=== PATIENT | female | born 1990 | race African-American/Black ===

== ENCOUNTER → 2016-06-29 | Outpatient (CLI) | payer OTHER ==
[2016-06-29 13:29] LABS: BASO % 0.5 % (0.0-1.0); EOS % 1.1 % (0.0-3.0); LARGE UNSTAINED CELL # 0.1 K/mm3 (0.0-0.4); LYMPH # 1.5 K/mm3 (1.5-6.5); LYMPH % 38.7 % (24.0-44.0); MEAN CORPUSCULAR VOLUME 90.5 fl (80.0-96.0); MONO # 0.2 K/mm3 (0.0-0.8); MONO % 5.8 % (0.0-5.0); NEUTROPHILS # 1.9 K/mm3 (1.8-7.7); NEUTROPHILS % 51.9 % (36.0-66.0); PLATELET COUNT, AUTOMATED 211 k/mm3 (150-450); RED CELL DISTRIBUTION WIDTH 13.4 % (11.5-14.5); WHITE BLOOD COUNT 3.6 K/mm3 (4.0-10.0)
[2016-06-29 13:52] LABS: ALBUMIN 4.1 GM/DL (3.2-5.2); ALBUMIN/GLOBULIN RATIO 1.21 (1.00-1.93); ALKALINE PHOSPHATASE 77 U/L (45-117); ALT/SGPT 14 U/L (12-78); ANION GAP 7 MEQ/L (8-16); AST/SGOT 23 U/L (15-37); BILIRUBIN,TOTAL 0.9 MG/DL (0.2-1.0); BLOOD UREA NITROGEN 9 MG/DL (7-18); CALCIUM LEVEL 9.2 MG/DL (8.5-10.1); CARBON DIOXIDE LEVEL 27 MEQ/L (21-32); CHLORIDE LEVEL 106 MEQ/L (98-107); CHOLESTEROL LEVEL 191 MG/DL (<200); CREATININE FOR GFR 0.95 MG/DL (0.55-1.02); GLOMERULAR FILTRATION RATE > 60.0 (>60); GLUCOSE, FASTING 71 MG/DL (70-105); POTASSIUM SERUM 4.2 MEQ/L (3.5-5.1); SODIUM LEVEL 140 MEQ/L (136-145); TOTAL PROTEIN 7.5 GM/DL (6.4-8.2); TRIGLYCERIDES LEVEL 50 MG/DL (<150)
== END ==
LOC: M WUC 10:30
PROVIDERS: ATTEND Physician Assistant
DX: R53.83 Other fatigue (principal); Z13.220 Encounter for screening for lipoid disorders

== ENCOUNTER → 2017-06-05 | Outpatient (REF) | payer OTHER ==
[2017-06-05 12:51] LABS: BASO % 1.1 % (0.0-1.0); EOS # 0.1 10^3/uL (0.0-0.50); EOS % 1.8 % (0.0-3.0); HEMATOCRIT 40.5 % (36.0-47.0); HEMOGLOBIN 13.5 g/dl (12.0-16.0); LYMPH # 1.2 10^3/uL (1.5-6.5); LYMPH % 43.1 % (24.0-44.0); MEAN CORPUSCULAR HGB CONC 33.3 g/dl (32.0-36.5); MONO # 0.4 10^3/uL (0.0-0.8); NEUTROPHILS # 1.1 10^3/uL (1.8-7.7); PLATELET COUNT, AUTOMATED 243 10^3/uL (150-450); RED CELL DISTRIBUTION WIDTH 13.4 % (11.5-14.5); WHITE BLOOD COUNT 2.7 10^3/uL (4.0-10.0)
[2017-06-05 13:42] LABS: ALBUMIN 4.2 GM/DL (3.2-5.2); ALBUMIN/GLOBULIN RATIO 1.24 (1.00-1.93); ALKALINE PHOSPHATASE 69 U/L (45-117); ALT/SGPT 23 U/L (12-78); ANION GAP 7 MEQ/L (8-16); AST/SGOT 39 U/L (7-37); BILIRUBIN,TOTAL 0.7 MG/DL (0.2-1.0); BLOOD UREA NITROGEN 7 MG/DL (7-18); CALCIUM LEVEL 9.2 MG/DL (8.5-10.1); CARBON DIOXIDE LEVEL 28 MEQ/L (21-32); CHLORIDE LEVEL 103 MEQ/L (98-107); CHOLESTEROL LEVEL 201 MG/DL (<200); CHOLESTEROL RISK RATIO 1.703 (<5); CREATININE FOR GFR 0.95 MG/DL (0.55-1.30); GLOMERULAR FILTRATION RATE > 60.0 (>60); GLUCOSE, FASTING 79 MG/DL (70-100); HDL CHOLESTEROL 118 MG/DL (>40); LDL CHOLESTEROL 68.6 MG/DL (<100); NON-HDL-C 83 MG/DL; POTASSIUM SERUM 4.1 MEQ/L (3.5-5.1); SODIUM LEVEL 138 MEQ/L (136-145); TOTAL PROTEIN 7.6 GM/DL (6.4-8.2); TRIGLYCERIDES LEVEL 72 MG/DL (<150)
== END ==
LOC: M SFHCPLAZ 09:40
DX: Z00.00 Encounter for general adult medical examination without abnormal findings (principal); Z13.220 Encounter for screening for lipoid disorders

== ENCOUNTER 2017-06-12 11:52 | Emergency (ER) | payer OTHER ==
[2017-06-12 14:04] LABS: BASO % 0.3 % (0.0-1.0); HEMATOCRIT 40.6 % (36.0-47.0); HEMOGLOBIN 13.6 g/dl (12.0-16.0); IMMATURE GRANULOCYTE % 0.7 % (0-3.0); LYMPH # 0.6 10^3/uL (1.5-6.5); LYMPH % 7.1 % (24.0-44.0); MEAN CORPUSCULAR HEMOGLOBIN 30.8 pg (27.0-33.0); MEAN CORPUSCULAR HGB CONC 33.5 g/dl (32.0-36.5); MEAN CORPUSCULAR VOLUME 92.1 fl (80.0-96.0); MONO # 0.4 10^3/uL (0.0-0.8); MONO % 4.3 % (0.0-5.0); NEUTROPHILS # 7.9 10^3/uL (1.8-7.7); NEUTROPHILS % 87.6 % (36.0-66.0); PLATELET COUNT, AUTOMATED 244 10^3/uL (150-450); RED BLOOD COUNT 4.41 10^6/uL (4.00-5.40); RED CELL DISTRIBUTION WIDTH 14.2 % (11.5-14.5)
[2017-06-12 14:20] LABS: AMPHETAMINES LEVEL URINE NEGATIVE (NEGATIVE); BARBITURATES URINE NEGATIVE (NEGATIVE); BENZODIAZEPINES URINE NEGATIVE (NEGATIVE); CANNABINOIDS URINE POSITIVE (NEGATIVE); COCAINE METABOLITE URINE NEGATIVE (NEGATIVE); METHADONE URINE NEGATIVE (NEGATIVE); OPIATES URINE NEGATIVE (NEGATIVE); PHENCYCLIDINE URINE NEGATIVE (NEGATIVE)
[2017-06-12 14:58] LABS: CONTROL LINE UCG INT CTR LINE PRESENT; URINE PREG TEST NEGATIVE (NEGATIVE)
[2017-06-12 15:07] LABS: D-DIMER QUANT 781.9 ng/ml (<500)
[2017-06-12 15:08] LABS: ANION GAP 18 MEQ/L (8-16); BLOOD UREA NITROGEN 8 MG/DL (7-18); CALCIUM LEVEL 8.8 MG/DL (8.5-10.1); CARBON DIOXIDE LEVEL 20 MEQ/L (21-32); CHLORIDE LEVEL 101 MEQ/L (98-107); CK-MB VALUE MASS 1.3 NG/ML (0.0-3.6); CPK CREATINE PHOSPHOKINASE 238 U/L (26-192); CREATININE FOR GFR 0.94 MG/DL (0.55-1.30); GLOMERULAR FILTRATION RATE > 60.0 (>60); GLUCOSE, FASTING 101 MG/DL (70-100); MB/CK RELATIVE INDEX 0.54 (< OR =4); POTASSIUM SERUM 3.6 MEQ/L (3.5-5.1); SODIUM LEVEL 139 MEQ/L (136-145); TROPONIN I < 0.02 NG/ML (< 0.10)
[2017-06-12] MEDS: KETOROLAC 30 MG/ML VIAL (J1885) IV (15:35)
[2017-06-12] MEDS ORDERED: ISOVUE-370 76% 100ML VIAL (Q9967) As Ordered (16:16)
== END 2017-06-12 18:03 | disposition home or self-care (01) ==
LOC: M ED 11:52
DX: R07.89 Other chest pain (principal); I45.19 Other right bundle-branch block; Z79.899 Other long term (current) drug therapy
CPT/HCPCS: Q9967

== ENCOUNTER 2017-07-13 15:18 | Emergency (ER) | payer OTHER ==
[2017-07-13] MEDS: ONDANSETRON 4 MG ORAL DISINTEGRATING TAB (S0181) PO (15:45)
[2017-07-13] MEDS: PERCOCET 5MG/325MG TAB PO (15:45)
== END 2017-07-13 17:02 | disposition home or self-care (01) ==
LOC: M ED 15:18
DX: S09.90XA Unspecified injury of head, initial encounter (principal); R51 Headache; W22.8XXA Striking against or struck by other objects, initial encounter; Y92.9 Unspecified place or not applicable; Y93.89 Activity, other specified; Y99.9 Unspecified external cause status; F17.200 Nicotine dependence, unspecified, uncomplicated
CPT/HCPCS: 70450

== ENCOUNTER 2017-07-23 18:12 | Emergency (ER) | payer OTHER | END 2017-07-23 18:35 | disposition home or self-care (01) | LOC: M ED 18:12 | DX: Z53.21 Procedure and treatment not carried out due to patient leaving prior to being seen by health care provider (principal) ==

== ENCOUNTER 2017-08-10 13:17 | Emergency (ER) | payer OTHER, MEDICAID | END 2017-08-10 14:29 | disposition left against medical advice (07) | LOC: M ED 14:29 | DX: Z04.1 Encounter for examination and observation following transport accident (principal); S00.81XA Abrasion of other part of head, initial encounter; V43.52XA Car driver injured in collision with other type car in traffic accident, initial encounter; Y92.410 Unspecified street and highway as the place of occurrence of the external cause; F17.200 Nicotine dependence, unspecified, uncomplicated; Z79.899 Other long term (current) drug therapy | CPT/HCPCS: 81025 ==

== ENCOUNTER 2017-08-11 09:29 | Emergency (ER) | payer OTHER ==
[2017-08-11] MEDS: ACETAMINOPHEN 325 MG TAB PO (09:52)
== END 2017-08-11 11:09 | disposition home or self-care (01) ==
LOC: M ED 09:29
DX: S00.81XA Abrasion of other part of head, initial encounter (principal); S20.212A Contusion of left front wall of thorax, initial encounter; S00.83XA Contusion of other part of head, initial encounter; S50.12XA Contusion of left forearm, initial encounter; V43.52XA Car driver injured in collision with other type car in traffic accident, initial encounter; Y92.410 Unspecified street and highway as the place of occurrence of the external cause; Y93.9 Activity, unspecified; Y99.9 Unspecified external cause status; F17.200 Nicotine dependence, unspecified, uncomplicated; Z79.899 Other long term (current) drug therapy
CPT/HCPCS: 71101

== ENCOUNTER → 2017-08-21 | Outpatient (CLI) | payer MEDICAID | LOC: M OUTALCOH 07:54 | DX: Z13.9 Encounter for screening, unspecified (principal); F12.20 Cannabis dependence, uncomplicated; F10.20 Alcohol dependence, uncomplicated ==

== ENCOUNTER 2017-09-04 15:19 | Outpatient (RCR) | payer MEDICAID | END 2017-09-28 | LOC: M OUTALCOH 15:19 | DX: F10.20 Alcohol dependence, uncomplicated (principal); F12.20 Cannabis dependence, uncomplicated; Z72.0 Tobacco use ==

== ENCOUNTER 2017-10-21 14:00 | Outpatient (RCR) | payer MEDICAID | END 2017-10-29 | LOC: M OUTALCOH 10-22 09:00 | DX: F10.20 Alcohol dependence, uncomplicated (principal); F12.20 Cannabis dependence, uncomplicated; Z72.0 Tobacco use ==

== ENCOUNTER → 2018-01-15 | Outpatient (CLI) | payer MEDICAID | LOC: M OUTALCOH 08:51 | DX: Z13.9 Encounter for screening, unspecified (principal); F10.20 Alcohol dependence, uncomplicated; F12.20 Cannabis dependence, uncomplicated ==

== ENCOUNTER 2018-01-22 10:00 | Outpatient (RCR) | payer MEDICAID | END 2018-01-29 | LOC: M OUTALCOH 10:00 | DX: F10.20 Alcohol dependence, uncomplicated (principal); F12.20 Cannabis dependence, uncomplicated; Z72.0 Tobacco use ==

== ENCOUNTER → 2018-06-10 | Outpatient (REF) | payer OTHER ==
[~2018-06-10] MED LIST: AMIT10TA PO; IBUP-1022 PO; IBUP80TA PO; RANI15TA PO; ROBA500T PO
[2018-06-10 13:44] LABS: HEMATOCRIT 39.6 % (36.0-47.0); HEMOGLOBIN 13.1 g/dl (12.0-15.5); MEAN CORPUSCULAR HEMOGLOBIN 28.7 pg (27.0-33.0); MEAN CORPUSCULAR HGB CONC 33.1 g/dl (32.0-36.5); MEAN CORPUSCULAR VOLUME 86.8 fl (80.0-96.0); PLATELET COUNT, AUTOMATED 272 10^3/uL (150-450); RED BLOOD COUNT 4.56 10^6/uL (4.00-5.40); WHITE BLOOD COUNT 2.9 10^3/uL (4.0-10.0)
[2018-06-10 14:00] LABS: ALBUMIN 3.9 GM/DL (3.2-5.2); ALT/SGPT 20 U/L (12-78); BILIRUBIN,TOTAL 0.9 MG/DL (0.2-1.0); BLOOD UREA NITROGEN 7 MG/DL (7-18); CALCIUM LEVEL 8.6 MG/DL (8.5-10.1); CARBON DIOXIDE LEVEL 27 MEQ/L (21-32); CHLORIDE LEVEL 107 MEQ/L (98-107); CREATININE FOR GFR 0.78 MG/DL (0.55-1.30); FREE T4 0.75 NG/DL (0.76-1.46); GLOMERULAR FILTRATION RATE > 60.0 (>60); GLUCOSE, FASTING 68 MG/DL (70-100); POTASSIUM SERUM 3.9 MEQ/L (3.5-5.1); SODIUM LEVEL 141 MEQ/L (136-145); THYROID STIMULATING HORMONE 0.628 uIU/ML (0.358-3.740); TOTAL PROTEIN 7.2 GM/DL (6.4-8.2)
== END ==
LOC: M SFHCPLAZ 11:27
PROVIDERS: ATTEND Nurse Practitioner Family
DX: Z00.00 Encounter for general adult medical examination without abnormal findings (principal); Z86.2 Personal history of diseases of the blood and blood-forming organs and certain disorders involving the immune mechanism; F41.8 Other specified anxiety disorders; Z87.898 Personal history of other specified conditions

== ENCOUNTER 2018-07-06 22:51 | Emergency (ER) | payer OTHER ==
[~2018-07-06] VITALS: Ht 182.9 cm; Wt 84.4 kg
[2018-07-06 22:51] VITALS: BP 130/84
[2018-07-06] MEDS ORDERED: ADACEL/BOOSTRIX VACCINE (DIPHTH/PERTUSS/ACELL/TETANUS)0.5ML SYR (90715) IM ONE (23:45)
== END 2018-07-07 01:10 | disposition home or self-care (01) ==
LOC: M ED 22:51
DX: S01.81XA Laceration without foreign body of other part of head, initial encounter (principal); S11.91XA Laceration without foreign body of unspecified part of neck, initial encounter; X58.XXXA Exposure to other specified factors, initial encounter; Y92.89 Other specified places as the place of occurrence of the external cause

== ENCOUNTER 2019-05-29 04:03 | Day surgery (SDC) | payer OTHER ==
[~2019-05-29] VITALS: Ht 182.9 cm; Wt 103.8 kg
[2019-05-29] MEDS ORDERED: CITA20TA6 PO (04:10)
[2019-05-29] MEDS ORDERED: CLONI1TA PO (04:10)
[2019-05-29] MEDS ORDERED: TRAZ-257 PO (04:10)
[2019-05-29] MEDS ORDERED: NON-325T5 PO (04:10)
--- NOTE | 2019-05-29 05:12 | REPVR ---
PROCEDURE INFORMATION: Exam: CT Cervical Spine Without Contrast Exam date and time: 05/29/2019 4:29 AM Age: 28 years old Clinical indication: Neck pain; Additional info: Fall + loc head injury TECHNIQUE: Imaging protocol: Computed tomography images of the cervical spine without contrast. Radiation optimization: All CT scans at this facility use at least one of these dose optimization techniques: automated exposure control; mA and/or kV adjustment per patient size (includes targeted exams where dose is matched to clinical indication); or iterative reconstruction. COMPARISON: No relevant prior studies available. FINDINGS: Vertebrae: Straightening of the normal cervical lordotic curvature. Normal vertebral body heights and alignments. No fractures. Discs/Spinal canal/Neural foramina: Diffuse degenerative disc space loss with degenerative disc osteophyte complexes causes up to mild spinal and foraminal stenosis greatest at C4-C6. Soft tissues: Unremarkable. Lungs: Lung apices are normal. IMPRESSION: No acute fracture/subluxation. Electronically signed by: Ajay Grant On 05/29/2019 05:12:31 AM
--- NOTE | 2019-05-29 05:13 | REPVR ---
PROCEDURE INFORMATION: Exam: CT Head Without Contrast Exam date and time: 05/29/2019 4:29 AM Age: 28 years old Clinical indication: Injury or trauma; Fall; Initial encounter; Concussion / head injury; With loss of consciousness; Not specified; Additional info: Fall + loc head injury TECHNIQUE: Imaging protocol: Computed tomography of the head without contrast. Radiation optimization: All CT scans at this facility use at least one of these dose optimization techniques: automated exposure control; mA and/or kV adjustment per patient size (includes targeted exams where dose is matched to clinical indication); or iterative reconstruction. COMPARISON: CT Head without contrast 2017-07-13 15:42 FINDINGS: Brain: Normal. No hemorrhage. Unremarkable white matter. No mass effect. Ventricles: Normal. No ventriculomegaly. Bones/joints: Unremarkable. No acute fracture. Sinuses: Visualized sinuses are unremarkable. No fluid levels. Mastoid air cells: Visualized mastoid air cells are well aerated. Soft tissues: Forehead and left periorbital soft tissue swelling. Laceration of the left eyelid. IMPRESSION: 1. No acute intracranial abnormality. 2. Forehead and left periorbital soft tissue swelling. Laceration of the left eyelid. Electronically signed by: Ajay Grant On 05/29/2019 05:13:33 AM
[2019-05-29] MEDS ORDERED: ACETAMINOPHEN 325 MG TAB PO ONE (06:15)
[2019-05-29] MEDS ORDERED: TROPICAMIDE 1% OPHTH SOLN 2ML OS ONE (07:15)
[2019-05-29] MEDS ORDERED: PHENYLEPHRINE 2.5% OPHTH SOL 2ML OS ONE (07:15)
--- NOTE | 2019-05-29 09:25 | CR.PDOC ---
Plastic Surgery Consultation Date of Consultation 05/29/19 History and Physical CONSULT REPORT FOR: Emergency room REASON FOR CONSULTATION: Left upper eyelid laceration HISTORY OF PRESENT ILLNESS: 28 y/o female s/p fall with LOC last night. Left upper eyelid laceration full thickness. Patient has no complains in vision ever nges. No active bleeding. Ophthalmology evaluation done- no acute pathology. CT negative for fracture. PAST MEDICAL HISTORY: 1. Anxiety. PAST SURGICAL HISTORY: INCLUDES: 1. unknown. ALLERGIES: Please see below. FAMILY HISTORY: not contributory. HOME MEDICATIONS: Please see below. REVIEW OF SYSTEMS: GENERAL: Denies chills, reports weight gain,. HEENT: Denies blurred vision and double vision. Denies ear symptoms. Denies hoarseness. NECK: Denies any neck pain]. CARDIOVASCULAR: Denies chest pain and palpitations. MUSCULOSKELETAL: Denies arthralgias, back pain and thrombophlebitis. SKIN: Denies rash. Laceration s/p trauma NEUROLOGIC: Denies headache, stroke and transient ischemic attack. PSYCHIATRIC: anxiety and depression. ENDOCRINE: Denies thyroid disease. HEMATOLOGY/ONCOLOGY: Denies bleeding or clotting disorder. HEART: Denies any chest pains, palpitations, paroxysmal dyspnea, orthopnea. PULMONARY: Denies chronic cough, dyspnea and wheezing. GASTROINTESTINAL: Denies rectal bleeding, family history of colon cancer, constipation, diarrhea, dysphagia, heartburn and jaundice. GENITOURINARY: Denies dysuria, frequency, hematuria and nocturia. ENDOCRINE: Denies polydipsia, polyphagia, polyuria, heat or cold intolerance. INFECTIOUS: Denies any recent upper respiratory tract infection, UTI, need for use of antibiotics. NUTRITION: Reports good appetite. PHYSICAL EXAMINATION: VITALS SIGNS: Please see below. GENERAL APPEARANCE:Patient seen, laying in bed, awake, alert, and oriented. Comfortable, in no acute distress. SKIN: Warm and moist. Full thickness laceration left upper eyelid. Vertical component from mid pupil 0.5cm from lid edge full thickness, than extending laterally 2 cm partial thickness. No active bleeding. EOMI NECK: Supple, no thyromegaly. No obvious jugular venous distention. LUNGS: Clear to auscultation bilaterally. No wheezing appreciated. HEART: No chest wall abnormalities. Regular rate and rhythm with no murmurs appreciated. LABORATORY DATA: Please see below. IMAGING STUDIES: CT head/neck. Negative for fractures. Normal orbit, globe intact. IMPRESSION: Complex laceration left upper eyelid without change in vision. PLANS: OR for wash out, repair complex laceration left upper eyelid injury. NPO IV antibiotics Findings discussed with ER and patient in details. Vital Signs Vital Signs Date Time Temp Pulse Resp B/P (MAP) Pulse Ox O2 Delivery O2 Flow Rate FiO2 05/29/19 06:48 96.8 92 18 139/74 (95) 97 05/29/19 04:03 Room Air Laboratory Data Labs 24H Laboratory Tests 2 05/29/19 08:54: 05/29/19 08:57: POC Beta HCG, Quantitative < 5.0 CBC/BMP Home Medications Scheduled Acetaminophen (Acetaminophen) 325 Mg Tablet, 650 MG PO ASDIRECTED for pain or fever, (Reported) Citalopram Hydrobromide (Citalopram HBr) 20 Mg Tablet, 20 MG PO DAILY, (Reported) Clonidine Hcl (Clonidine HCl) 0.1 Mg Tablet, 1 TAB PO QPM, (Reported) Trazodone HCl (Trazodone HCl) 100 Mg Tablet, 100 MG PO QPM, (Reported) Scheduled PRN Ibuprofen (Ibuprofen) 600 Mg Tab, 600 MG PO Q6H PRN for PAIN Allergies Coded Allergies: No Known Allergies (Unverified , 07/06/18) AMARA KAUFMAN DO May 29, 2019 09:25
[2019-05-29 09:27] LABS: BASO % 0.4 % (0.0-1.0); EOS % 0.1 % (0.0-3.0); HEMATOCRIT 37.4 % (36.0-47.0); HEMOGLOBIN 11.8 g/dl (12.0-15.5); MEAN CORPUSCULAR HEMOGLOBIN 25.6 pg (27.0-33.0); MEAN CORPUSCULAR HGB CONC 31.6 g/dl (32.0-36.5); MEAN CORPUSCULAR VOLUME 81.1 fl (80.0-96.0); MONO # 0.7 10^3/uL (0.0-0.8); MONO % 9.5 % (0.0-5.0); NEUTROPHILS % 63.6 % (36.0-66.0); PLATELET COUNT, AUTOMATED 411 10^3/uL (150-450); RED BLOOD COUNT 4.61 10^6/uL (4.00-5.40); WHITE BLOOD COUNT 7.8 10^3/uL (4.0-10.0)
[2019-05-29 09:39] LABS: BLOOD UREA NITROGEN 3 MG/DL (7-18); CALCIUM LEVEL 8.7 MG/DL (8.5-10.1); CARBON DIOXIDE LEVEL 23 MEQ/L (21-32); CHLORIDE LEVEL 106 MEQ/L (98-107); CREATININE FOR GFR 0.81 MG/DL (0.55-1.30); ETHYL ALCOHOL (ETHANOL) 0.154 % (0.000-0.010); GLOMERULAR FILTRATION RATE > 60.0 (>60); GLUCOSE, FASTING 85 MG/DL (70-100); POTASSIUM SERUM 3.6 MEQ/L (3.5-5.1); SODIUM LEVEL 139 MEQ/L (136-145)
[2019-05-29] MEDS ORDERED: IBUP-1022 PO (09:51)
[2019-05-29] MEDS ORDERED: KETOROLAC 30 MG/ML VIAL (J1885) IV ONE (10:00)
[2019-05-29] MEDS ORDERED: ceFAZolin SOD 1 GM in D5W MINI-BAG PLUS 50 ML IV ONE (11:15)
[2019-05-29] MEDS ORDERED: POVIDONE-IODINE 5% OPHTH PREP SOL 30ML As Ordered ONE (12:29)
[2019-05-29] MEDS ORDERED: BACITRACIN OINT 30GM As Ordered ONE (12:53)
[2019-05-29] MEDS ORDERED: LIDOCAINE W/EPINEPHRINE 1% 20ML VIAL As Ordered ONE (12:53)
[2019-05-29] MEDS ORDERED: LIDOCAINE 2% W/EPIN INJ 20ML **PRES FREE As Ordered ONE (12:53)
[2019-05-29] MEDS ORDERED: propofoL 200 MG/20 ML VIAL As Ordered ONE (12:56)
[2019-05-29] MEDS ORDERED: MIDAZOLAM INJ 2 MG/2 ML VIAL (J2250) As Ordered ONE (12:56)
[2019-05-29] MEDS ORDERED: ONDANSETRON 4MG/2ML VIAL (J2405) As Ordered ONE ×2 (12:56→14:49)
[2019-05-29] MEDS ORDERED: LIDOCAINE 2% INJ 100 MG/5 ML SDV (FOR ANES.) As Ordered ONE (12:56)
[2019-05-29] MEDS ORDERED: dexameTHASONE 4 MG/ML 1ML VIAL (J1100) As Ordered ONE (12:56)
[2019-05-29] MEDS ORDERED: fentaNYL 100 MCG/2 ML INJECTION (J3010) As Ordered ONE ×2 (12:56→13:25)
[2019-05-29] MEDS ORDERED: POLYSPORIN OPHTH OINT 3.5 GM As Ordered ONE ×2 (13:10→14:59)
[2019-05-29] MEDS ORDERED: ROCURONIUM BROMIDE 50 MG/5 ML VIAL As Ordered ONE ×2 (13:23→14:14)
[2019-05-29] MEDS ORDERED: HYDROmorphone HCL 2 MG/ML 1ML VIAL (J1170) As Ordered ONE (14:33)
[2019-05-29] MEDS ORDERED: ACETAMINOPHEN 1000MG 100ML IV BTL (OFIRMEV) (J0131 PER 10MG) As Ordered ONE (14:34)
[2019-05-29] MEDS ORDERED: SUGAMMADEX SODIUM 500 MG/5 ML VIAL (BRIDION) As Ordered ONE (14:42)
--- NOTE | 2019-05-29 14:54 | POST-OPPD ---
Postoperative Procedure Note Date Of Procedure: May 29, 2019 PREOPERATIVE DIAGNOSIS: Left upper eyelid complex laceration POSTOPERATIVE DIAGNOSIS: same FINDINGS: Full thickness laceration left upper eyelid 3 cm PROCEDURE: Irrigation, debridement, and complex repair of left upper eyelid laceration. SURGEON: Dr Kaufman ANESTHESIA: general SPECIMENS: none ESTIMATED BLOOD LOSS: none REPLACED: none DRAINS: none COMPLICATIONS: none POSTOPERATIVE CONDITION: stable Dict: [id number] AMARA KAUFMAN DO May 29, 2019 14:54
[2019-05-29] MEDS ORDERED: METOCLOPRAMIDE INJ 10MG/2ML VIAL (J2765) IV PRN (15:15)
[2019-05-29] MEDS ORDERED: LR 1,000 ML IV SCH (15:15)
[2019-05-29] MEDS ORDERED: oxyCODONE 5MG TAB PO PRN (15:15)
[2019-05-29] MEDS ORDERED: HYDROMORPHONE HCL 0.5 MG/ 0.5 ML SYRINGE (J1170 PER 1) IV PRN (15:15)
[2019-05-29] MEDS ORDERED: ONDANSETRON 4MG/2ML VIAL (J2405) IV PRN (15:15)
[2019-05-29] MEDS ORDERED: oxyCODONE 5MG TAB As Ordered ONE (15:52)
[2019-05-29 16:45] VITALS: BP 133/85
--- NOTE | 2019-05-30 08:58 | RO ---
DATE OF PROCEDURE: 05/29/2019 PREOPERATIVE DIAGNOSIS: Left upper eyelid complex laceration. POSTOPERATIVE DIAGNOSIS: Left upper eyelid complex laceration. FINDINGS: Full thickness laceration, left upper lid, total 3 cm. PROCEDURE: Irrigation, debridement and complex repair of left upper eyelid laceration. ATTENDING SURGEON: Arielle Harper DO ANESTHESIA: General. SPECIMEN: There is no specimen. ESTIMATED BLOOD LOSS: No blood loss. DRAINS: No drains. COMPLICATIONS: No complications. PROCEDURE: This is a 28-year-old female who was seen in the emergency room today status post fall with loss of consciousness. This occurred early this morning. The patient has a full thickness laceration to her left eye. CT workup was negative and loss of consciousness workup was negative. Ophthalmology has seen the patient. There is no orbital changes. She had a complex laceration which is oriented vertically at the mid pupillary line, goes about 0.5 cm superiorly and then 2.5 cm laterally, full thickness, transecting the tarsal plate completely. The patient is scheduled to go to the OR for incision and drainage, and laceration repair. All of the risks and benefits of doing this were discussed with the patient in detail and she is ready to proceed. Informed consent was confirmed in the hold area. She was brought into the operating room, placed in supine position. Preoperative antibiotics were given in the emergency room with 1 gram of Ancef. General anesthesia was induced. She was prepped and draped in the usual sterile fashion. I started the procedure by doing copious irrigation of the left lid with balance salt solution (BSS). Then Bacitracin was placed on the eye and corneal protector was introduced without any difficulties. Then the left upper lid was reexamined again. Devitalized tissue was debrided using sharp iris scissors. She has a clean cut laceration at the mid pupillary point vertically through full length of the tarsal plate through and through. The tarsal edges were debrided of devitalized tissue as well, and a plate horizontally oriented laceration full thickness through the midpoint mid pupillary line to the lateral canthus. We started our procedure by realigning this upper eyelid at the ciliary level with the #6-0 silk in an inverted mattress fashion, then the repair of tarsal plate was done with #6-0 Vicryl sutures from anterior positioning in an interrupted fashion. All of the knots were turned away from the sclera. After that portion was completed, the muscle layer was repaired with #6-0 Vicryl and #5-0 plain gut suture and the skin was closed with interrupted #6-0 plain gut sutures realigning the eyelid completely in a good fashion. Then the eye the corneal protector was then removed. The eye again was irrigated with BSS solution and antibiotic ointment was placed on the suture line externally. The patient was extubated in the operating room without any difficulties, transferred to the recovery room in stable condition with cool compress on her left eye. SNOW
--- NOTE | 2019-06-01 19:37 | ER ---
DATE OF CONSULTATION: 05/29/2019 CHIEF COMPLAINT: Left eyelid laceration. HISTORY OF THE PRESENT ILLNESS: A 28-year-old female here with her male medical technologist prn, presents to the emergency department after a fall in the credit professional while walking up stairs. She states that she was walking up her stairs to go inside, and she tripped on the ice and hit her left forehead and left upper eyelid on an icy step. There was no change in vision. The patient denies flashes, floaters. She does have some mild pain. PAST OCULAR HISTORY: Prescription glasses, which the patient admits to only using for driving vision. She denies any prior ocular medications or surgery. PAST MEDICAL HISTORY: See chart. MEDICATIONS: See chart. ALLERGIES: See chart. IMAGING: CT head without contrast revealed no orbital fractures or open globe. EXAM: Limited bedside exam was performed. Visual acuity uncorrected is approximately 20/30 in the right eye and 20/30 in the left eye. The patient does not have her glasses with her. The pupils are in the right eye 5 mm and dark to 3 mm in light and then in the left eye, 5 mm in dark to 3 mm in light. There is no APD present. Extraocular muscles are full bilaterally without restriction. Confrontation visual meraz are full to count fingers in both eyes. Lid lashes and adnexa are within normal limits of the right eye. The left upper eyelid has a full thickness eyelid laceration with the superior sclera visible through the laceration. The conjunctivae and sclerae are within normal limits in the right eye and the left eye has a superior temporal subconjunctival hemorrhage without conjunctival abrasion or laceration. There is no bullous conjunctival hemorrhage. Corneas are clear bilaterally. Anterior chamber is deep and quiet bilaterally. Lens is clear OU. The intraocular pressure was within normal limits to palpation bilaterally as well. The patient was dilated with Tropicamide 0.5% to the left eye only. Cup-to-disc ratio 0.4, sharp, pink and flat optic nerve. Vessels are within normal limits. Macula is within normal limits. Periphery within normal limits. There are no tears, holes or retinal detachment visible, although this was a limited bedside exam. ASSESSMENT AND PLAN: The patient has a left upper eyelid full thickness laceration. The eye is essentially normal and is OK to proceed with surgical repair with plastic surgery. Eye exam is largely unremarkable except for a mild subconjunctival hemorrhage, which should resolve on its own. The patient should followup with her eye care provider or with me in the office if she has any changes. SNOW
== END 2019-05-29 16:45 | disposition home or self-care (01) ==
LOC: M ED 04:03 → M SDC 13:26
PROVIDERS: ATTEND Plastic Surgery Surgery of the Hand
DX: S01.112A Laceration without foreign body of left eyelid and periocular area, initial encounter (principal); S06.0X1A Concussion with loss of consciousness of 30 minutes or less, initial encounter; H11.32 Conjunctival hemorrhage, left eye; W00.1XXA Fall from stairs and steps due to ice and snow, initial encounter; Y92.89 Other specified places as the place of occurrence of the external cause; F41.9 Anxiety disorder, unspecified; F32.9 Major depressive disorder, single episode, unspecified; F17.200 Nicotine dependence, unspecified, uncomplicated; Z79.899 Other long term (current) drug therapy
CPT/HCPCS: 67935; 80048; 84702; 85025; 96365; 99284; G0480; J0131; J0690; J1100; J1170; J2250; J2405; J3010

== ENCOUNTER 2019-09-03 03:33 | Emergency (ER) | payer OTHER ==
[~2019-09-03] VITALS: Ht 182.9 cm; Wt 88.7 kg
[~2019-09-03 03:33] MED LIST changes: +CITA20TA6 PO; +CLONI1TA PO; +NON-325T5 PO; +TRAZ-257 PO
[2019-09-03 03:34] VITALS: BP 121/71
[2019-09-03] MEDS ORDERED: AZITHROMYCIN 250MG TABLET PO ONE (04:15)
[2019-09-03] MEDS ORDERED: cefTRIAXone SOD 250MG VIAL (J0696 PER 250MG) IM ONE (04:15)
[2019-09-03 05:47] LABS: CHLAMYDIA DNA AMPLIFICATION NEGATIVE (NEGATIVE); GC DNA AMPLIFICATION NEGATIVE (NEGATIVE)
== END 2019-09-03 04:26 | disposition home or self-care (01) ==
LOC: M ED 03:33
DX: N72 Inflammatory disease of cervix uteri (principal); F17.210 Nicotine dependence, cigarettes, uncomplicated; Z79.899 Other long term (current) drug therapy
CPT/HCPCS: 81001; 87086; 87210; 87491; 87591; 99282; J0696

== ENCOUNTER 2019-11-19 00:30 | Emergency (ER) | payer OTHER ==
[~2019-11-19] VITALS: Ht 180.3 cm; Wt 78.0 kg
[2019-11-19 00:31] VITALS: BP 140/89
[2020-01-07] MEDS ORDERED: METR-265 PO (00:07)
== END 2019-11-19 02:30 | disposition home or self-care (01) ==
LOC: M ED 00:30
DX: F43.20 Adjustment disorder, unspecified (principal); Z79.899 Other long term (current) drug therapy; F17.210 Nicotine dependence, cigarettes, uncomplicated

== ENCOUNTER 2020-01-05 23:09 | Emergency (ER) | payer OTHER ==
[~2020-01-05] VITALS: Ht 182.9 cm; Wt 80.6 kg
[2020-01-05 23:10] VITALS: BP 126/55
[2020-01-07] MEDS ORDERED: METR-265 PO (00:07)
== END 2020-01-06 00:45 | disposition left against medical advice (07) ==
LOC: M ED 23:09
DX: Z53.21 Procedure and treatment not carried out due to patient leaving prior to being seen by health care provider (principal)

== ENCOUNTER 2020-01-06 20:57 | Emergency (ER) | payer OTHER ==
[~2020-01-06] VITALS: Ht 182.9 cm; Wt 82.7 kg
[2020-01-06] MEDS ORDERED: AZITHROMYCIN 250MG TABLET PO ONE (22:30)
[2020-01-06] MEDS ORDERED: cefTRIAXone SOD 250MG VIAL (J0696 PER 250MG) IM ONE (22:30)
[2020-01-06] MEDS ORDERED: LIDOCAINE 1% SDV 5ML VIAL As Ordered ONE (22:37)
[2020-01-06 22:38] VITALS: BP 116/75
[2020-01-07 00:07] LABS: CHLAMYDIA DNA AMPLIFICATION NEGATIVE (NEGATIVE); GC DNA AMPLIFICATION NEGATIVE (NEGATIVE)
[2020-01-07] MEDS ORDERED: METR-265 PO (00:07)
[2020-01-07 12:37] LABS: HEPATITIS B SURFACE ANTIBODY NEGATIVE (POSITIVE); HEPATITIS B SURFACE ANTIGEN NEGATIVE (NEGATIVE); HEPATITIS C VIRUS ABY INDEX 0.1 INDEX (<0.8); HIV 1&2 SCREEN CENTAUR NEGATIVE (NEGATIVE)
== END 2020-01-06 22:59 | disposition home or self-care (01) ==
LOC: M ED 20:57
DX: Z20.2 Contact with and (suspected) exposure to infections with a predominantly sexual mode of transmission (principal); Z79.3 Long term (current) use of hormonal contraceptives
CPT/HCPCS: 80047; 81001; 84702; 86706; 86780; 86803; 87086; 87210; 87340; 87389; 87661; 96372; 99283; J0696

== ENCOUNTER 2020-05-11 15:02 | Emergency (ER) | payer OTHER ==
[~2020-05-11] VITALS: Ht 180.3 cm; Wt 75.9 kg
[~2020-05-11 15:02] MED LIST changes: +ACET-838 PO; +METR-265 PO; -NON-325T5 PO
[2020-05-11] MEDS ORDERED: HALOPERIDOL 5MG/ML VIAL (J1630 PER 1) As Ordered ONE (15:41)
[2020-05-11] MEDS ORDERED: diphenhydrAMINE 50MG/ML VIAL (J1200) As Ordered ONE (15:42)
[2020-05-11] MEDS ORDERED: LORazepam 2 MG/ML VIAL As Ordered ONE (15:42)
[2020-05-11] MEDS ORDERED: LORazepam 2 MG/ML VIAL IM ONE (15:45)
[2020-05-11] MEDS ORDERED: HALOPERIDOL 5MG/ML VIAL (J1630 PER 1) IM ONE (15:45)
[2020-05-11] MEDS ORDERED: diphenhydrAMINE 50MG/ML VIAL (J1200) IM ONE (15:45)
[2020-05-11 17:33] LABS: HEMATOCRIT 38.5 % (36.0-47.0); HEMOGLOBIN 12.8 g/dl (12.0-15.5); MEAN CORPUSCULAR HEMOGLOBIN 28.4 pg (27.0-33.0); MEAN CORPUSCULAR HGB CONC 33.2 g/dl (32.0-36.5); MEAN CORPUSCULAR VOLUME 85.6 fl (80.0-96.0); PLATELET COUNT, AUTOMATED 306 10^3/uL (150-450)
[2020-05-11 17:59] LABS: HCG, SERUM QUALITATIVE NEGATIVE (NEGATIVE)
[2020-05-11 18:03] LABS: ACETAMINOPHEN LEVEL < 2.0 UG/ML (10.0-30.0); ALT/SGPT 14 U/L (12-78); BILIRUBIN,DIRECT 0.2 MG/DL (0.0-0.2); BILIRUBIN,TOTAL 0.5 MG/DL (0.2-1.0); BLOOD UREA NITROGEN 7 MG/DL (7-18); CALCIUM LEVEL 8.9 MG/DL (8.5-10.1); CARBON DIOXIDE LEVEL 25 MEQ/L (21-32); CHLORIDE LEVEL 107 MEQ/L (98-107); CPK CREATINE PHOSPHOKINASE 275 U/L (26-192); CREATININE FOR GFR 0.86 MG/DL (0.55-1.30); ETHYL ALCOHOL (ETHANOL) 0.251 % (0.000-0.010); GLOMERULAR FILTRATION RATE > 60.0 (>60); GLUCOSE, FASTING 67 MG/DL (70-100); POTASSIUM SERUM 3.2 MEQ/L (3.5-5.1); SALICYLATE LEVEL 4.3 MG/DL (5.0-30.0); SODIUM LEVEL 143 MEQ/L (136-145); TOTAL PROTEIN 7.5 GM/DL (6.4-8.2)
[2020-05-11 18:05] LABS: RSV AMPLIFICATION NEGATIVE (NEGATIVE)
[2020-05-11 23:13] LABS: AMPHETAMINES LEVEL URINE NEGATIVE (NEGATIVE); BARBITURATES URINE NEGATIVE (NEGATIVE); BENZODIAZEPINES URINE NEGATIVE (NEGATIVE); CANNABINOIDS URINE POSITIVE (NEGATIVE); COCAINE METABOLITE URINE NEGATIVE (NEGATIVE); METHADONE URINE NEGATIVE (NEGATIVE); OPIATES URINE NEGATIVE (NEGATIVE); PHENCYCLIDINE URINE NEGATIVE (NEGATIVE)
[2020-05-12 04:41] VITALS: BP 122/79
== END 2020-05-12 04:51 | disposition home or self-care (01) ==
LOC: M ED 15:02
DX: F10.229 Alcohol dependence with intoxication, unspecified (principal); Y90.1 Blood alcohol level of 20-39 mg/100 ml; F90.9 Attention-deficit hyperactivity disorder, unspecified type; Z79.899 Other long term (current) drug therapy; F17.210 Nicotine dependence, cigarettes, uncomplicated
CPT/HCPCS: 36415; 80048; 80076; 80143; 80307; 82077; 82550; 84443; 84703; 85027; 87631; 96372; 99285; J1200; J1630; J2060